=== PATIENT | female | born 1990 | race Caucasian/White ===

== ENCOUNTER 2018-12-03 11:10 | Emergency (ER) | payer OTHER ==
--- NOTE | 2018-12-03 11:15 | PDOC ---
History of Present Illness <Ronaldo Elliott - Last Filed: 12/03/18 13:31> - History of Present Illness Initial Comments: Ms. Meza is 28 y/o female with hx of generalized anxiety and panic disorder presents to the ED with urinary frequency and dysuria. The pain began around 11/28 and on 11/30 she went to urgent care where she was started on nitrofurantoin. She took 2 doses with no improvement of symptoms and called urgent care today who told her that her urine was growing E.coli and that she should go to the emergency department. Reports chills intermittently since Sunday. Reports hematuria (dark urine) intermittently since Sunday. Reports vaginal discharge but no bleeding from the vagina. Reports nausea/ vomiting. Reports right sided flank pain. She had one UTI last year. Denies fever, chest pain, shortness of breath, cough, hematemesis, hematochezia. PMH: anxiety, depression, panic disorder SocHx: cocaine/marijuana use <Minh Maddox - Last Filed: 12/03/18 13:33> - General Chief Complaint: Urinary Problem Stated Complaint: URINARY SX, ANXIETY Time Seen by Provider: 12/03/18 11:12 Past History <Ronaldo Elliott - Last Filed: 12/03/18 13:31> <Minh Maddox - Last Filed: 12/03/18 13:33> - Past Medical History Allergies/Adverse Reactions: Allergies Allergy/AdvReac Type Severity Reaction Status Date / Time No Known Allergies Allergy Verified 12/03/18 11:11 Home Medications: Ambulatory Orders Cephalexin [Keflex] 500 mg PO TID 14 Days #42 capsule 12/03/18 Clonazepam [Klonopin] 2 mg PO BID PRN 12/03/18 Naproxen [Naprosyn] 500 mg PO ASDIR 12/03/18 Nitrofurantoin Monohyd/M-Cryst [Macrobid -] 100 mg PO ASDIR 12/03/18 Sertraline HCl [Zoloft] 200 mg PO DAILY 12/03/18 Review of Systems - Review of Systems Comments:: GENERAL/CONSTITUTIONAL: Reports chills. No fever. No weakness._ HEAD, EYES, EARS, NOSE AND THROAT: No change in vision. No change in hearing. No sore throat._ CARDIOVASCULAR: No chest pain or shortness of breath_ RESPIRATORY: Denies cough, hemoptysis_ GASTROINTESTINAL: Reports nausea/vomiting/diarrhea. No constipation. GENITOURINARY: No dysuria, frequency, or change in urination. MUSCULOSKELETAL: No joint or muscle swelling or pain. No neck pain. Reports right sided back pain. SKIN: No rash_ NEUROLOGIC: No headache, vertigo, loss of consciousness, or change in strength/ sensation._ ENDOCRINE: No increased thirst. No abnormal weight change_ HEMATOLOGIC/LYMPHATIC: No anemia, easy bleeding, or history of blood clots._ ALLERGIC/IMMUNOLOGIC: No hives or skin allergy._ <Minh Maddox - Last Filed: 12/03/18 13:33> *Physical Exam - Vital Signs Last Vital Signs Temp Pulse Resp BP Pulse Ox 98.5 F 85 18 97/66 100 12/03/18 11:10 12/03/18 11:10 12/03/18 11:10 12/03/18 11:10 12/03/18 11:10 <Roanldo Elliott - Last Filed: 12/03/18 13:31> - Physical Exam Comments: GENERAL: Awake, alert, and oriented to person/place/time, in no acute distress_ HEAD: No signs of trauma, normocephalic, atraumatic _ EYES: PERRLA, EOMI, sclera anicteric, conjunctiva clear_ ENT: Hearing grossly normal, nares patent, oropharynx clear without exudates. No uvular deviation. Moist mucosa_ NECK: Normal ROM, supple, no lymphadenopathy, JVD, or masses_ LUNGS: No distress, speaks in full sentences, clear to auscultation bilaterally _ HEART: Regular rate and rhythm, normal S1 and S2, no murmurs appreciated, peripheral pulses normal and equal bilaterally._ ABDOMEN: Soft, diffuse periumbilical TTP, normoactive bowel sounds. No guarding , no rebound. No masses_ BACK: CVA TTP right greater than left EXTREMITIES: Normal inspection, Normal range of motion, no edema. No clubbing or cyanosis_ NEUROLOGICAL: Cranial nerves II through XII grossly intact. Normal speech, normal gait, no focal sensorimotor deficits _ SKIN: Warm, Dry, normal turgor, no rashes or lesions noted_ PELVIC External genitalia unremarkable. Speculum exam with whitish vaginal discharge. No blood appreciated on exam. Vaginal wall mucosa is unremarkable. Cervix visualized and is unremarkable (closed in appearance without any protruding material). Bimanual exam without cervical motion tenderness or any masses appreciated. Left sided adnexal tenderness. (Swabs for testing for gonorrhea, chlamydia were obtained.) <Minh Maddox - Last Filed: 12/03/18 13:33> ED Treatment Course - LABORATORY CBC & Chemistry Diagram: 12/03/18 11:50 12/03/18 11:50 - ADDITIONAL ORDERS Additional order review: Laboratory Results 12/03/18 12/03/18 12/03/18 11:50 11:34 11:20 Sodium 138 Potassium 3.8 Chloride 106 Carbon Dioxide 25 Anion Gap 7 L BUN 12.0 Creatinine 0.7 Est GFR (CKD-EPI)AfAm 138.59 Est GFR (CKD-EPI)NonAf 119.58 Random Glucose 94 Calcium 9.5 Total Bilirubin 0.6 AST 15 ALT 13 Alkaline Phosphatase 43 L Total Protein 7.6 Albumin 4.6 Urine Color Yellow Urine Appearance Clear Urine pH 7.0 Urine Protein 1+ H Urine Glucose (UA) Negative Urine Ketones Trace Urine Blood Negative Urine Nitrite Negative Urine Bilirubin 1+ H Urine Urobilinogen 1.0 Ur Leukocyte Esterase 1+ Urine RBC 2-5 Urine WBC 40-60 Ur Transition Epith Cell Moderate Urine Bacteria Few Urine HCG, Qual Negative 12/03/18 11:50 RBC 4.64 MCV 92.2 MCHC 33.6 RDW 11.9 MPV 9.2 Neutrophils % 63.9 Lymphocytes % 25.8 Monocytes % 7.5 Eosinophils % 1.0 Basophils % 1.8 - Medications Given in the ED: ED Medications Discontinued Medications Generic Name Dose Route Start Last Admin Trade Name Amie PRN Reason Stop Dose Admin Acetaminophen 1,000 mg 12/03/18 11:45 12/03/18 12:15 Ofirmev Injection - IVPB 12/03/18 11:46 1,000 mg ONCE ONE Administration Azithromycin 1,000 mg 12/03/18 12:43 12/03/18 12:55 Zithromax PO 12/03/18 12:44 1,000 mg ONCE ONE Administration Ceftriaxone Sodium 1,000 mg/ 50 mls @ 100 mls/hr 12/03/18 12:43 12/03/18 13: 00 Dextrose IVPB 12/03/18 13:12 100 mls/hr ONCE ONE Administration Ondansetron HCl 4 mg 12/03/18 11:45 12/03/18 12:30 Zofran Injection IVPUSH 12/03/18 11:46 4 mg ONCE ONE Administration Sodium Chloride 1,000 ml 12/03/18 11:45 12/03/18 12:15 Normal Saline - IV 12/03/18 11:46 1,000 ml ONCE ONE Administration <Ronaldo Elliott - Last Filed: 12/03/18 13:31> - LABORATORY CBC & Chemistry Diagram: 12/03/18 11:50 12/03/18 11:50 <Minh Maddox - Last Filed: 12/03/18 13:33> Medical Decision Making - Medical Decision Making 12/03/18 1130 28F with hx of anxiety, depression, panic disorder, presenting with 1 week of dysuria, hematuria, frequency. Associated with chills. No fever. Seen in urgent care and prescribed abx without improvement. DDx includes pyelo vs UTI vs PID vs STI infection. -CBC, CMP, UA, UC, GC amp -tylenol, fluids 12/03/18 1300 Labs reviewed. WBC wnl. UA shows possible UTI. Plan to start 1 g azithromycin and 1 g ceftriaxone in the ED and d/c home with empiric treatment for pyelo/UTI, gonorrhea, and chalamydia. F/u PCP. Return precautions given. Patient verbalized understanding and agreement with plan. <Minh Maddox - Last Filed: 12/03/18 13:33> *DC/Admit/Observation/Transfer <Ronaldo Elliott - Last Filed: 12/03/18 13:31> <Minh Maddox - Last Filed: 12/03/18 13:33> Diagnosis at time of Disposition: Dysuria - Discharge Dispostion Disposition: HOME Condition at time of disposition: Stable - Prescriptions Prescriptions: Cephalexin [Keflex] 500 mg PO TID 14 Days #42 capsule - Referrals Referrals: Jose Angel Cotton MD [Staff Physician] - - Patient Instructions Additional Instructions: Please make an appointment with your primary care physician to follow up from today's visit. Please make an appointment with a psychiatrist in your insurance network for psychiatric care of your anxiety. Please take the Keflex antibiotic - 500 mg three times per day. Please take Motrin for pain control (follow instructions on the package). If you experience any new, worsening, or concerning symptoms, including fever, vomiting, inability to hydrate, severe abdominal or back pain, increased blood in the urine or increased vaginal bleeding, or any other concerns, please return to the emergency room. If you experience any thoughts of hurting yourself, hurting someone else, hallucinations, inability to care for yourself on a day-to-day basis, please return to the emergency room. - Post Discharge Activity Forms/Work/School Notes: Back to School
[2018-12-03 11:37] VITALS: BP 97/66; PULSE 85; TEMP 98.5; BMI 24.1
[2018-12-03] MEDS ORDERED: ONDANSETRON 4 MG/2 ML VIAL IVPUSH ONE (11:45)
[2018-12-03] MEDS ORDERED: ACETAMINOPHEN 1000 MG/100 ML VIAL (NON FORMULARY) IVPB ONE (11:45)
[2018-12-03] MEDS ORDERED: SODIUM CHLORIDE 0.9% 1000 ML INFUS.BAG IV ONE (11:45)
[2018-12-03] MEDS ORDERED: ACETAMINOPHEN INJECTION 100 ML IVPB ONE (11:56)
[2018-12-03] MEDS ORDERED: ONDANSETRON 4 MG/2 ML VIAL ONE (11:57)
[2018-12-03 12:03] LABS: EPITHELIAL CELLS MODERATE /hpf
[2018-12-03 12:26] LABS: BASO % 1.8 % (0-2.0); HEMATOCRIT 42.8 % (32.4-45.2); HEMOGLOBIN 14.4 GM/dl (10.7-15.3); LYMPH % 25.8 % (8-40); MCHC 33.6 g/dl (32.0-36.0); MEAN CELL VOLUME 92.2 fl (80-96); MEAN PLT VOLUME 9.2 fl (7.5-11.1); MONO % 7.5 % (3.8-10.2); NEUT % 63.9 % (42.8-82.8); PLATELET COUNT 239 K/MM3 (134-434); RBC 4.64 M/mm3 (3.60-5.2); RDW 11.9 % (11.6-15.6); WHITE BLOOD COUNT 5.8 K/mm3 (4.0-10.8)
[2018-12-03 12:43] LABS: ALBUMIN 4.6 g/dl (3.4-5.0); BILIRUBIN,TOTAL 0.6 mg/dl (0.2-1); CALCIUM 9.5 mg/dl (8.5-10); CREATININE 0.7 mg/dl (0.55-1.3); POTASSIUM 3.8 mmol/L (3.5-5.1); TOT PROT 7.6 g/dl (6.4-8.2)
[2018-12-03] MEDS ORDERED: AZITHROMYCIN 500 MG TABLET PO ONE (12:43)
[2018-12-03] MEDS ORDERED: CEFTRIAXONE 1,000 MG in DEXTROSE 5%-WATER - 50 ML IVPB ONE (12:43)
[2018-12-03] MEDS ORDERED: cefTRIAXone SODIUM 1 GM VIAL ONE (12:52)
[2018-12-03] MEDS ORDERED: AZITHROMYCIN 250 MG TABLET ONE (12:52)
--- NOTE | 2018-12-03 13:31 | PDOC ---
Attending Attestation - Resident Resident Name: Minh Maddox - ED Attending Attestation I have performed the following: I have examined & evaluated the patient, The case was reviewed & discussed with the resident, I agree w/resident's findings & plan, Exceptions are as noted - HPI HPI: 12/03/18 13:45 28 years old past medical history significant for anxiety depression was managed on clonazepam used to be on Lexapro presents to the ED with signs and symptoms of UTI now with back discomfort. Sent from urgent care secondary to Escherichia coli positive UTI and back discomfort Also has history of vomiting and diarrhea but patient states she gets the symptoms more from her anxiety No fever no chills positive scant vaginal discharge history of previous unprotected sex ROS: A complete review of 10 out of 10 review of systems is taken and is negative apart from what is previously mentioned below and in the HPI. - Physicial Exam PE: 12/03/18 13:45 Vitals: Triage Vital signs reviewed General Appearance: no acute distress, well nourished well developed, Head: Atraumatic, Neck: Supple;No Nucal rigidity Chest Wall: Nontender Cardiac: Regular rate and rhythym, no murmurs, no rubs, no gallops, Lungs: Clear to auscultation bilateral, good air movement bilaterally, Abdomen: Soft, non distended, normal bowel sounds, non tender to palpation Musculoskeletal:: Mild right CVA tenderness to palpation Extremities: Full range of motion to all extremities, no cyanosis, clubbing, or edema Skin: Warm and dry, no rashes or lesions, no rash, no petechiae Neuro: Strength intact to all extremities, Sensation intact to all extremities, gait normal Psych: normal mood, normal affect, no suicidal ideation, no homicidal ideation - Medical Decision Making 12/03/18 13:49 Well appearing no apparent distress with history of UTI now with back discomfort very mild. Differential diagnosis includes musculoskeletal versus early Pyelo No fever no white count labs within normal limits urinalysis positive. Given scant vaginal discharge but no CMT on pelvic examination low suspicion for PID we'll change antibiotics to Keflex patient will be treated empirically with ceftriaxone and azithromycin in the ED for to cover for possible STI. She has a follow-up appointment with her doctor next week. Patient also has been suffering from worsening anxiety but is not suicidal or homicidal has a psychiatrist which she has seen in the past. I attempted to call the psychiatrist twice with no answer. Recommended that she continues to try to make contact she can also use her insurance provider's to arrange for psychiatric follow-up Instructed to return to the emergency department for any severe worsening symptoms any severe worsening anxiety depression or for any concerns. 12/03/18 17:38
== END 2018-12-03 14:10 | disposition home or self-care (01) ==
LOC: FER 11:10
PROC: 3E0337Z Introduction of Electrolytic and Water Balance Substance into Peripheral Vein, Percutaneous Approach (ICD-10-PCS; principal; 2018-12-03)
PROC: 3E03329 Introduction of Other Anti-infective into Peripheral Vein, Percutaneous Approach (ICD-10-PCS; 2018-12-03)
PROC: 3E033GC Introduction of Other Therapeutic Substance into Peripheral Vein, Percutaneous Approach (ICD-10-PCS; 2018-12-03)
PROC: 3E033NZ Introduction of Analgesics, Hypnotics, Sedatives into Peripheral Vein, Percutaneous Approach (ICD-10-PCS; 2018-12-03)
DX: R30.0 Dysuria (principal); F41.9 Anxiety disorder, unspecified; F41.0 Panic disorder [episodic paroxysmal anxiety]
CPT/HCPCS: 36415; 80053; 81003; 81015; 84703; 85025; 87086; 87491; 87591; 96365; 96375; 99285-25; J0131; J7030

== ENCOUNTER 2023-12-16 04:19 | Emergency (ER) | payer BC, OTHER ==
[2023-12-16 04:30] VITALS: BP 112/83; PULSE 86; RESP 18; TEMP 98.5; BMI 24.2
== END 2023-12-16 05:39 | disposition home or self-care (01) ==
LOC: FER 04:19
DX: F41.9 Anxiety disorder, unspecified (principal); T42.4X1A Poisoning by benzodiazepines, accidental (unintentional), initial encounter
CPT/HCPCS: 93005; 99284-25